=== PATIENT | male | born 2000 | race Caucasian/White ===

== ENCOUNTER 2019-05-29 13:31 | Day surgery (SDC) | payer OTHER, SELFPAY ==
[2019-05-19 08:33] VITALS: BMI 26.8
--- NOTE | 2019-05-28 21:43 | PCM.HP.BLA ---
History and Physical Date of Admission: 05/29/19 HISTORY OF PRESENT ILLNESS 18 year old man presents with a changing enlarging lesion right upper lateral back that had increased in size over the last several months. A recent punch biopsy on 03/27/19 showed an irritated dysplastic junctional lentiginous nevus with moderate atypia (closely approximates deep margin. He denies trauma. He presents at this time for further evaluation for surgical options for treatment. PAST MEDICAL HISTORY brain concussion PAST SURGICAL HISTORY lymph node excision ALLERGIES No Known Allergies MEDICATIONS NK FAMILY HISTORY Father - Diabetes Grandmother - Colon cancer Grandfather - CVA (cerebral vascular accident) SOCIAL HISTORY Smoking Status: Never smoker alcohol intake: never substance use type: does not use REVIEW OF SYSTEMS General - Denies fever, fatigue, and weight loss. Eyes - Denies cataracts and glaucoma. ENT - Denies nasal congestion and sore throat. Endocrine - Denies excessive thirst and urination. Skin - Denies skin cancer. Has enlarging lesion right upper lateral back that was punch biopsied on 03/27/19 and it showed a dysplastic nevus with moderate atypia. Musculoskeletal - Denies joint pain, joint stiffness, weakness of muscles and joints, back pain, and arthritis. Neuro - Denies headaches. Cardiovascular - Denies chest pain, fatigue, and shortness of breath with exertion. Psych - Denies anxiety and depression. Respiratory - Denies chronic cough and shortness of breath. Gastrointestinal - Denies nausea, vomiting, diarrhea, and constipation. Hematologic - Denies abnormal bruising and bleeding. Genitourinary - Denies hematuria and urinary frequency. PHYSICAL EXAMINATION General - Alert and Oriented. HEENT - PERRL. EOMI. Throat is clear. No suspicious lesions noted. Neck - Supple and nontender. No cervical adenopathy. No suspicious lesions noted. Lungs - Clear to auscultation. Heart - Regular rate and rhythm. Abdomen - Soft and nondistended. Extremities - FROM. No axillary adenopathy. Radial pulses are palpable. No suspicious lesions noted. Back - On the right upper lateral back is a healing scar that measures 7 mm. Has irregular borders. Recent pathology from 03/27/19 showed a dysplastic nevus with moderate atypia. Neuro - CN II-XII grossly intact. Psych - Normal mood and affect. ASSESSMENT 7 mm dysplastic nevus with moderate atypia right upper lateral back. PLAN Recommend excision of this dysplastic nevus with moderate atypia right upper lateral back with a small margin both peripherally and deeply since the deep margin was positive. Will send the lesion to pathology for analysis to rule out carcinoma. If carcinoma is present then additional excision would be necessary with skin flap or skin graft reconstruction. Surgery will be done on an outpatient basis under local anesthesia. Will then followup with PCP in 6 months for a TBSE. This would be followed by yearly TBSE's. Patient was informed of the risks and complications of the procedure including alternatives to surgery. These were discussed with the patient personally. Patient voices understanding and wishes to proceed. Some of the risks and complications were included in a form from the [employer].
--- NOTE | 2019-05-29 | IMM_PTH ---
PATIENT: TOYA SYED [place] [facility] [place][id number] AGE/SX: 18/M ROOM: RE05/29/[address]: Dr. Pedro Luis Gomez MD : 2000 BED: DIS: 05/29/2019 SPEC #: [id number] RECD: 06/03/19 12:29 STATUS: ARCHANA REQ #: [id number] MARBELLA: 05/29/19 00:[address]: Pedro Luis Gmoez DEPT: IMMUNOHISTOCHEMISTRY RECD BY: Soo Sheriff ENTERED: 06/03/19 12:32 SP TYPE: IMMUNO OTHR DR: Dr. Robert Snow MD Tissues: Skin of back, NOS Procedures: CK14 (add) CK5-6 (add) Vimentin (add) Pankeratin (initial) MELAN-A (add) S-100 (add) PHYSICIAN & INSTITUTION [place] [id number] SPECIMEN INFORMATION: Tissue Source: Skin lesion, right upper back Clinical Info: Dysplastic nevus with atypia Specimen Number: [id number] #2 CPT code: 74412, 24848 x5 METHODOLOGY: Deparaffinized sections of prefer/formalin-fixed tissue or PAP/DQ stained slides are incubated with monoclonal/polyclonal antibodies/oligonucleotide probes. Localization is made via biotin free immunoperoxidase method. Appropriate controls are performed and reacted as expected. Results on target cell population are indicated in the following table: RESULTS: ANTIBODY / CLONE RESULT Block 2 AE1-3 (AE1/AE3/PCK26) negative Vimentin (V9) negative S-100 (4C4.9) negative Melan A (A103) negative CK5-6 (D5 & 1684) negative CK14 (LL002) negative These tests were developed and their performance characteristics determined by [facility]. They may not have been cleared or approved by the U.S. Food and Drug Administration. The FDA has determined that such clearance or approval is not necessary. INTERPRETATION: Skin lesion, right upper back, biopsy: No evidence of residual melanoma. AM:maranda 06/04/19
[2019-05-29 14:02] VITALS: BP 125/69; PULSE 82; RESP 16; TEMP 37.2; O2SAT 99; BMI 27.0
[2019-05-29] MEDS: Cefadroxil 500 MG CAPSULE PO (14:09)
--- NOTE | 2019-05-29 14:40 | LES_PTH ---
PATIENT: TOYA SYED [place] [facility] [place][id number] AGE/SX: 18/M ROOM: RE05/29/[address]: Dr. Pedro Luis Gomez MD : 2000 BED: DIS: 05/29/2019 SPEC #: [id number] RECD: 05/29/19 16:18 STATUS: ARCHANA STEVE #: [id number] MARBELLA: 05/29/19 14:[address]: Pedro Luis Gomez DEPT: SURGICAL PATHOLOGY RECD BY: Silvio Kumar ENTERED: 06/02/19 08:39 SP TYPE: Lesion OTHR DR: Dr. Robert Snow MD Tissues: Skin of back, NOS Procedures: Surgery Specimen Level IV HEADER OPERATION: Excision dysplastic nevus right upper lateral back PRE-OP DIAGNOSIS: 7 mm dysplastic nevus with moderate atypia TISSUE SUBMITTED: Dysplastic nevus with atypia, suture at 12 o'clock MICROSCOPIC DIAGNOSIS Skin lesion, right upper lateral back, biopsy: Cicatrix. Microscopic epidermal inclusion cyst. No evidence of malignancy. AM:maranda 06/03/19 COMMENT Immunohistochemistry ([id number]) supports the above diagnosis. Case has been reviewed in consultation with Dr. Giraldo who concurs with the above diagnosis. IDC:HERMINIO MICROSCOPIC DESCRIPTION Slides are reviewed. GROSS DESCRIPTION Received in fixative is one container labeled with the patient's name and designated dysplastic nevus with atypia, suture at 12 o'clock. The specimen consists of a piece of moreira-white skin ellipse measuring 2.3 x 0.7 cm and up to 1 cm in thickness. The specimen is inked as follows: 12 o'clock - black, 6 o'clock - blue. The specimen is serially sectioned and submitted entirely in two cassettes. Cassette 1 contains the tips of the skin ellipse. / HERMINIO:maranda 06/02/19 TC:5 CPT: 78236
[2019-05-29] MEDS: Mupirocin Ointment 22gm Tube 1 APPLIC (15:01)
--- NOTE | 2019-05-29 15:08 | PCM.OPRPT ---
Report of Operation Date of Procedure: 05/29/19 Pre-Operative Diagnosis: 7 mm dysplastic nevus with moderate atypia right upper lateral back. Post-Operative Diagnosis: Same. Surgery/Procedure Performed:: Excision 7 mm dysplastic nevus with moderate atypia right upper lateral back with 3 cm layered closure. Description of Surgical Findings:: 18 year old man presents with a changing enlarging lesion right upper lateral back that had increased in size over the last several months. A recent punch biopsy on 03/27/19 showed an irritated dysplastic junctional lentiginous nevus with moderate atypia (closely approximates deep margin. He denies trauma. Patient was informed of the risks and complications of the procedure including alternatives to surgery. These were discussed with the patient personally. Patient voices understanding and wishes to proceed. Some of the risks and complications were included in a form from the [employer] [employer]. office coordinator receptionist: None Type of Anesthesia:: Local - xylocaine with epinephrine. Specimen's removed: Dysplastic nevus with moderate atypia right upper lateral back to Pathology. Drains: None. Estimated Blood Loss (mL): 2 ml. Description of Procedure: Patient was taken to OR in supine position and was placed in the prone position. The right upper lateral back was prepped and draped in the usual fashion. SCD's were placed for DVT prophylaxis. Perioperative antibiotics were given orally since no IV was placed. The dysplastic nevus lesion right upper lateral back was infiltrated with xylocaine and epinephrine. After waiting 5 minutes for the anesthetic to take effect, the lesion was excised in an oblique elliptical fashion with a 2 mm margin in all directions thus making it an 11 mm excision and a 3 cm layered closure. The lesion was excised into the subcutaneous tissue and a suture was marked at the 12 oclock position for pathology orientation. The lesion was then sent to Pathology for analysis to rule out carcinoma. Hemostasis was obtained with electrocautery. The wound was closed in a layered fashion with 4-0 Monocryl interrupted sutures for the deep dermis and subcutaneous tissue. The skin was approximated with 4-0 Prolene simple interrupted sutures. Antibiotic ointment was applied followed by an Op-site dressing. Patient tolerated the procedure well and was sent to [facility] in satisfactory condition. Patient will be sent home on antibiotics and pain medication. Patient will followup in 2 weeks for a wound check and for discussion of the pathology report and for removal of the sutures. 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 I told him it was ok if the Health [facility] there removed the sutures in two weeks. He will need a TBSE in 6 months and then yearly after that. He voiced understanding. Grafts/Implants Used: None. - Complications None. - Admit VTE Documentation VTE Present on Admission: No VTE Mechan Device Prophylaxis: SCD's VTE Pharm Prophylaxis ordered?: No Code Visit Surgery Charges CPT - 59135 ICD-10 - D23.5 29154 D23.5
[2019-05-29 15:15] VITALS: BP 125/69; BP 125/71; PULSE 76; RESP 16; TEMP 37; O2SAT 100
--- NOTE | 2019-05-29 15:15 | DCINST_ITS ---
You will use the following diet at home:: No restrictions Discharge Activity: May not drive while taking narcotic pain medications., May Shower - in two days., - - no heavy lifting for 2 weeks. may do cardio exercise, (run, ride a stationary bicycle). may do upper body exercises after sutures out in two weeks. May shower in (days): 2 May resume sexual activity in: No Restrictions Weight Bearing Status: Weight bearing as tolerated Call your doctor if your incision/area has: Continuous Slow Oozing, Sudden Increased Bleeding, Increased Pain/ Swelling, Increased Redness, Foul Smelling Discharge, Swelling at the incision site Call your doctor if you observe: Fever of 101 or Higher, Coldness, Increased Pain, Shortness of breath, Chest pain, Calf discomfort, Uncontrolled pain Suture Line Care: - - after dressing removed in two days, apply antibiotic ointment to suture line daily. Change Dressing in (Days):: 2 Cleanse incision/area with: - - may get incision wet in the shower in two days. Additional Instructions: Patient is a student at [employer] in [place], [place]. It is ok if the sutures are removed there in the medical clinic in 2-3 weeks. Otherwise he will come to see me to have the sutures removed. Allergies/Adverse Reactions: Allergies No Known Allergies Allergy (Unverified 05/29/19 13:56) Medications to take at Discharge Cefadroxil [Duricef] 500 mg PO BID #8 cap 05/29/19 Oxycodone HCl/Acetaminophen [Percocet 5/325] 1 tab PO Q6H PRN PRN 5 Days #20 tab 05/29/19 The following prescriptions were given: Cefadroxil [Duricef] 500 mg PO BID #8 cap Prescription Printed Oxycodone HCl/Acetaminophen [Percocet 5/325] 1 tab PO Q6H PRN PRN 5 Days #20 tab PRN Reason: Pain Prescription Printed Primary Care Physician: Robert Snow MD [Primary Care Provider] - Test Results: Test results from this visit will be discussed in further detail at your follow- up appointment, if applicable. Please Follow Up With: Pedor Luis Gomez MD When: 2 weeks. call [phone] for appt. Proposed Discharge Date: 05/29/19
== END 2019-05-29 15:36 | disposition home or self-care (01) ==
LOC: SDC 13:34 → AC 13:39
PROVIDERS: Family Provider Family Medicine; PCP Family Medicine; Referring Provider Surgery; Visit Provider Surgery
PROC: (CPT 11402; principal; 2019-05-29 14:30)
DX: D23.5 Other benign neoplasm of skin of trunk (principal); L90.5 Scar conditions and fibrosis of skin; L72.0 Epidermal cyst; Z82.3 Family history of stroke
CPT/HCPCS: 11402; 12032; 88305; 88341; 88342